=== PATIENT | female | born 1990 | race African-American/Black ===

== ENCOUNTER 2018-04-28 09:44 | Emergency (ER) | payer OTHER ==
[~2018-04-28] VITALS: Ht 162.6 cm; Wt 68.0 kg
[2018-04-28 10:00] VITALS: BP 115/70
[2018-04-28 10:44] LABS: Urine Bacteria FEW /hpf (None Seen); Urine Blood Negative /uL (Negative); Urine Mucus FEW (None Seen); Urine Specific Gravity 1.023 (1.001-1.035); Urine WBC 2 /hpf (0 - 5)
== END 2018-04-28 12:29 | disposition home or self-care (01) ==
LOC: ER 09:44
DX: O20.0 Threatened abortion (principal); Z3A.12 12 weeks gestation of pregnancy
CPT/HCPCS: 36415; 76801; 81001; 84702